=== PATIENT | female | born 1980 | race Caucasian/White ===

== ENCOUNTER → 2018-06-08 | Outpatient (CLI) | payer OTHER ==
--- NOTE | 2018-06-08 13:46 | REP ---
MAXILLOFACIAL CT WITHOUT CONTRAST: HISTORY: Chronic maxillary sinusitis. Minimal mucosal thickening is present in the right maxillary sinus. The remaining sinuses are clear. The ostiomeatal units are patent. The middle and inferior nasal turbinates are partially paradoxical. There is marielena bullosa of the left middle nasal turbinate. There is minimal deviation of the nasal septum to the right superiorly and to the left inferiorly. A spur is present arising from the left side of the nasal septum. The cribriform plate, medial braxton of the orbits and optic canals are intact. The carotid canals form a segment of the posterolateral braxton of the sphenoid sinus. IMPRESSION: Sinus mucosal thickening as described above. Electronically Signed by Teo Castillo MD 06/08/2018 01:49 P
== END ==
LOC: M RAD 12:58
PROVIDERS: ATTEND Otolaryngology
DX: J34.9 Unspecified disorder of nose and nasal sinuses (principal); J32.0 Chronic maxillary sinusitis

== ENCOUNTER → 2019-04-05 | Outpatient (CLI) | payer OTHER | LOC: M LAB 12:02 | PROVIDERS: ATTEND Obstetrics & Gynecology | DX: R79.89 Other specified abnormal findings of blood chemistry (principal) ==

== ENCOUNTER → 2019-04-07 | Outpatient (CLI) | payer OTHER | LOC: M LAB 12:46 | PROVIDERS: ATTEND Obstetrics & Gynecology | DX: Z00.00 Encounter for general adult medical examination without abnormal findings (principal) ==

== ENCOUNTER → 2019-04-09 | Outpatient (CLI) | payer OTHER ==
--- NOTE | 2019-04-09 13:49 | REP ---
THERE IS A FIRST TRIMESTER OBSTETRIC SONOGRAPHY: HISTORY: Undetermined location, an appropriate hCG rise. Rule out ectopic . FINDINGS: Uterus is normal in size measuring 6.2 x 3.1 x 3.9 cm. No intrauterine gestation is seen. Endometrium is 0.4 cm in thickness. Right ovary measures 1.9 x 1.1 x 1.5 cm. It has a normal appearance. Doppler flow is normal in the right ovary, resistive index 0.66. The left ovary measures 1.7 x 1.2 x 1.7 cm with normal Doppler flow, resistive index 0.57. There is a 1.6 x 1.4 x 1.0 cm hypoechoic area medial to the left ovary which may be a paraovarian complex cyst. There is no evidence of free cul-de-sac fluid. IMPRESSION: Normal-sized empty uterus. No significant cul-de-sac fluid. 1.6 cm complex cystic area medial to the left ovary. Otherwise normal. Findings are nonspecific. Clinical and possibly sonographic followup is advised. Electronically Signed by Augusto Morgan MD 04/09/2019 06:49 P
== END ==
LOC: M RAD 12:29
PROVIDERS: ATTEND Obstetrics & Gynecology
DX: O02.81 Inappropriate change in quantitative human chorionic gonadotropin (hCG) in early pregnancy (principal)

== ENCOUNTER → 2019-04-09 | Outpatient (CLI) | payer OTHER | LOC: M LAB 11:06 | PROVIDERS: ATTEND Obstetrics & Gynecology | DX: O02.81 Inappropriate change in quantitative human chorionic gonadotropin (hCG) in early pregnancy (principal) ==

== ENCOUNTER → 2019-04-11 | Outpatient (CLI) | payer OTHER | LOC: M LAB 13:27 | PROVIDERS: ATTEND Obstetrics & Gynecology | DX: Z32.00 Encounter for pregnancy test, result unknown (principal) ==

== ENCOUNTER → 2019-04-18 | Outpatient (CLI) | payer OTHER | LOC: M LAB 13:31 | PROVIDERS: ATTEND Physician Assistant Medical | DX: R79.89 Other specified abnormal findings of blood chemistry (principal) ==

== ENCOUNTER → 2022-07-03 | Outpatient (CLI) | payer OTHER | LOC: M LAB 15:50 | PROVIDERS: ATTEND Registered Nurse | DX: Z36.89 Encounter for other specified antenatal screening (principal) ==